=== PATIENT | male | born 1940 | race Two or more races ===

== ENCOUNTER → 2019-08-17 | Outpatient (CLI) | payer MEDICARE ==
[~2019-08-17] MED LIST: VICODIN ES TAB1 EACH PO; Z.0.CARDURA4 MG PO; [UNRECOGNIZED DRUG - OTHER] PO
--- NOTE | 2019-08-17 12:16 | Diagnostic Imaging Report ---
X-ray right knee 2 views Comparison: None History: Pain in the knees and ankles for years recently worse Findings: No acute fracture, subluxation, or significant soft tissue swelling. Tricompartmental osteoarthritic changes. Degenerative calcification of the lateral meniscus. Incidental note is made of vascular calcification. Impression: Tricompartmental osteoarthritis. Signed by: Buddy Garcia MD on 08/17/2019 12:13 PM
--- NOTE | 2019-08-17 12:18 | Diagnostic Imaging Report ---
X-ray right ankle multiple views Comparison: None History: Chronic pain recently worse Findings: No acute fracture, subluxation, significant soft tissue abnormality. Incidental note is made of vascular calcifications. Impression: No acute fracture or subluxation. Signed by: Buddy Garcia MD on 08/17/2019 12:14 PM
== END ==
LOC: RAD 11:09
PROVIDERS: ATTEND Internal Medicine Rheumatology
DX: M25.561 Pain in right knee (principal); M25.571 Pain in right ankle and joints of right foot; M17.11 Unilateral primary osteoarthritis, right knee

== ENCOUNTER → 2019-08-31 | Outpatient (CLI) | payer MEDICARE ==
--- NOTE | 2019-08-31 15:28 | Diagnostic Imaging Report ---
Exam: Testicular ultrasound. Clinical History: Testicular pain Findings: Sonographic evaluation of the testicles. Both testes are normal in echogenicity and size. Normal symmetric bilateral blood flow without evidence of testicular torsion. Right: The right testicle measures 4.9 x 3.0 x 3.3 cm. 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 No intratesticular mass. The right epididymis measures 1.1 x 1.3 x 1.3 cm and appears unremarkable. Small right hydrocele. No varicocele. Left: The left testicle measures 4.4 x 2.3 x 3.8 cm. 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 No intratesticular mass. The left epididymis measures 1.3 x 1.1 x 1.1 cm and appears unremarkable. Trace left hydrocele. No varicocele. Impression: No testicular torsion. Tubular ectasia of the rete testis. Small right and trace left hydroceles. Signed by: Radha Pang MD on 08/31/2019 3:24 PM
== END ==
LOC: US 13:41
PROVIDERS: ATTEND Family Medicine
DX: N50.819 Testicular pain, unspecified (principal); N43.3 Hydrocele, unspecified
CPT/HCPCS: 76870; 93976